=== PATIENT | female | born 1960 | race Two or more races ===

== ENCOUNTER 2021-03-23 18:58 | Emergency (ER) | payer BC, OTHER ==
[~2021-03-23] VITALS: Ht 157.5 cm; Wt 73.9 kg
[2021-03-23 18:58] VITALS: BP 126/80
== END 2021-03-23 21:01 | disposition home or self-care (01) ==
LOC: ER 19:06
DX: E11.65 Type 2 diabetes mellitus with hyperglycemia (principal)
CPT/HCPCS: 82962